=== PATIENT | male | born 1955 | race American Indian/Alaskan Native ===

== ENCOUNTER 2017-03-10 09:53 | Emergency (ER) | payer MEDICAID ==
[2017-03-10 10:20] LABS: Eosinophils % (Auto) 5.2 % (0.0-4.3); Hematocrit 45.8 % (35.5-45.6); Hemoglobin 14.7 gm/dl (11.8-15.2); Mean Corpuscular HGB Conc 32 % (32-34); Mean Corpuscular Hemoglobin 28 pg (28-32); Mean Corpuscular Volume 87 fl (84-94); Platelet Count 184 K/mm3 (140-440); Red Blood Count 5.29 M/mm3 (3.65-5.03); Red Cell Distribution Width 13.8 % (13.2-15.2); White Blood Count 6.3 K/mm3 (4.5-11.0)
[2017-03-10 10:39] LABS: Anion Gap 19 mmol/L; Blood Urea Nitrogen 18 mg/dL (9-20); Calcium 9.2 mg/dL (8.4-10.2); Carbon Dioxide 25 mmol/L (22-30); Chloride 96.7 mmol/L (98-107); Glucose 90 mg/dL (75-100); Potassium 4.2 mmol/L (3.6-5.0); Sodium 136 mmol/L (137-145)
[2017-03-10 23:01] VITALS: BP 151/86
[2017-03-10] MEDS ORDERED: TORADOL IM ONE (23:35)
[2017-03-10] MEDS ORDERED: NORCO 5/325 PO ONE (23:35)
--- NOTE | 2017-03-11 00:59 | Emergency Department Report ---
ED Chest Pain HPI - General Chief Complaint: Chest Pain Stated Complaint: CHEEST PAIN/LT ARM PAIN Time Seen by Provider: 03/10/17 22:15 Source: patient Mode of arrival: Ambulatory Limitations: No Limitations - History of Present Illness Initial Comments: 61-year-old male with a past medical history diabetes, hypertension, and elevated cholesterol. The left sided chest pain times the past 2-3 days. Pain is at the left upper portion a chest radiated to the shoulder, aching, constant , rated 7/10 in intensity. Pain is worse with movement. Patient not taking any medication for pain. He states he did recently crank a car up using a lift prior to symptom onset. Patient denies associated symptoms including shortness of breath, nausea, vomiting, or diaphoresis. Reports he had a negative stress test this year positive for 5 months ago at [facility]. No repor no reports of calf tenderness or edema. Severity scale (0 -10): 5 - Related Data Home Medications Medication Instructions Recorded Confirmed Last Taken Aspirin EC [Aspirin Enteric Coated 81 mg PO DAILY 05/29/15 05/29/15 05/28/15 TAB] Lisinopril [Zestril TAB] 5 mg PO DAILY 05/29/15 05/29/15 05/28/15 Simvastatin [Zocor TAB] 20 mg PO QHS 05/29/15 05/29/15 05/28/15 cycloSPORINE [Restasis 0.05%] 1 drop OP BID 05/29/15 05/29/15 05/29/15 Previous Rx's Medication Instructions Recorded Last Taken Type Bacitracin Zinc Oint 1 applicatio TP BID #1 tube 05/29/15 Unknown Rx HYDROcodone/APAP 5-325 [[place] 1 each PO Q6HR PRN #20 tablet 03/11/17 Unknown Rx 5/325] Ibuprofen [Motrin] 800 mg PO Q8HR PRN #30 tablet 03/11/17 Unknown Rx Allergies Allergy/AdvReac Type Severity Reaction Status Date / Time No Known Allergies Allergy Verified 03/10/17 10:04 Heart Score - HEART Score History: Slightly suspicious EKG: Non-specific Age: 45-65 Risk factors: > 3 risk factors or hx of atherosclerotic disease Troponin: < normal limit HEART Score: 4 ED Review of Systems ROS: Stated complaint: CHEEST PAIN/LT ARM PAIN Other details as noted in HPI Comment: All other systems reviewed and negative Other: Constitutional: No fevers chills or weight loss Eyes: No eye pain visual changes or discharge ENT: No ear pain or throat pain Neck: Denies pain Respiratory: Denies cough wheezing shortness of breath Cardiovascular: As per HPI GI: Denies abdominal pain, nausea, vomiting, diarrhea : Denies dysuria, urinary frequency, or urgency Musculoskeletal: Denies back pain, joint swelling Skin: Denies rash, lesions, erythema Neurologic: Denies headache, numbness, weakness Psychiatric: Denies suicidal ideation, hallucinations ED Past Medical Hx - Past Medical History Previous Medical History?: Yes Hx Hypertension: Yes Hx Diabetes: Yes (diet controlled) Additional medical history: High Cholesterol. cataracts - Surgical History Past Surgical History?: Yes Additional Surgical History: cataract bilateral. Right radial/ulnar fx repair - Social History Smoking Status: Never Smoker Substance Use Type: None - Medications Home Medications: Home Medications Medication Instructions Recorded Confirmed Last Taken Type Aspirin EC [Aspirin Enteric Coated 81 mg PO DAILY 05/29/15 05/29/15 05/28/15 History TAB] Bacitracin Zinc Oint 1 applicatio TP BID #1 tube 05/29/15 Unknown Rx Lisinopril [Zestril TAB] 5 mg PO DAILY 05/29/15 05/29/15 05/28/15 History Simvastatin [Zocor TAB] 20 mg PO QHS 05/29/15 05/29/15 05/28/15 History cycloSPORINE [Restasis 0.05%] 1 drop OP BID 05/29/15 05/29/15 05/29/15 History HYDROcodone/APAP 5-325 [[place] 1 each PO Q6HR PRN #20 tablet 03/11/17 Unknown Rx 5/325] Ibuprofen [Motrin] 800 mg PO Q8HR PRN #30 tablet 03/11/17 Unknown Rx ED Physical Exam - General Limitations: No Limitations - Other Other exam information: General: No limitations, patient is alert in no acute distress Head exam: Atraumatic, normocephalic Eyes exam: Normal appearance ENT: Moist mucous membrane, normal oropharynx Neck exam: Normal inspection, full range of motion, Respiratory exam: Clear to auscultation bilateral, no wheezes, rales, crackles Cardiovascular: Normal rate and rhythm, normal heart sounds. Reproducible upper left chest pain with movement of left shoulder Abdomen: Soft, nondistended, and nontender, with normal bowel sounds, no rebound, or guarding Extremity: Full range of motion normal inspection no deformity, no calf tenderness or edema Back: Normal Inspection, full range of motion, no tenderness Neurologic: Alert, oriented x3, cranial nerves intact, no motor or sensory deficit Psychiatric: normal affect, normal mood Skin: Warm, dry, intact ED Course Vital Signs 03/10/17 03/10/17 03/10/17 10:04 19:55 22:59 Temperature 98.1 F Pulse Rate 80 72 68 Respiratory 20 20 16 Rate Blood Pressure 136/83 Blood Pressure 144/91 151/86 [Right] O2 Sat by Pulse 100 98 97 Oximetry - Reevaluation(s) Reevaluation #1: 03/11/17 00:59 Patient treated with [place] and Toradol in the ED BRISEYDA score - Briseyda Score Age > 65: (0) No Aspirin use within the Past 7 Days: (1) Yes 3 or more CAD Risk Factors: (1) Yes 2 or more Angina events in past 24 hrs: (0) No Known CAD with more than 50% Stenosis: (0) No Elevated Cardiac Markers: (0) No ST Deviation Greater than 0.5mm: (0) No BRISEYDA Score: 2 ED Medical Decision Making - Lab Data Result diagrams: 03/10/17 10:09 03/10/17 10:09 Lab Results 03/10/17 03/10/17 03/10/17 Range/Units 10:09 10:09 14:38 WBC 6.3 (4.5-11.0) K/mm3 RBC 5.29 H (3.65-5.03) M/mm3 Hgb 14.7 (11.8-15.2) gm/dl Hct 45.8 H (35.5-45.6) % MCV 87 (84-94) fl MCH 28 (28-32) pg MCHC 32 (32-34) % RDW 13.8 (13.2-15.2) % Plt Count 184 (140-440) K/mm3 Lymph % (Auto) 38.8 H (13.4-35.0) % [place] % (Auto) 9.4 H (0.0-7.3) % Eos % (Auto) 5.2 H (0.0-4.3) % Baso % (Auto) 1.0 (0.0-1.8) % Lymph # 2.5 (1.2-5.4) K/mm3 [place] # 0.6 (0.0-0.8) K/mm3 Eos # 0.3 (0.0-0.4) K/mm3 Baso # 0.1 (0.0-0.1) K/mm3 Seg Neutrophils % 45.6 (40.0-70.0) % Seg Neutrophils # 2.9 (1.8-7.7) K/mm3 Sodium 136 L (137-145) mmol/L Potassium 4.2 (3.6-5.0) mmol/L Chloride 96.7 L (98-107) mmol/L Carbon Dioxide 25 (22-30) mmol/L Anion Gap 19 mmol/L BUN 18 (9-20) mg/dL Creatinine 1.2 (0.8-1.5) mg/dL Estimated GFR > 60 ml/min BUN/Creatinine Ratio 15.00 % Glucose 90 (75-100) mg/dL Calcium 9.2 (8.4-10.2) mg/dL Troponin T < 0.010 < 0.010 (0.00-0.029) ng/mL - EKG Data -: EKG Interpreted by Me (nsr adrian 72, RV delay, nonspecific t abnl) - EKG Data 03/11/17 repeat ekg in ed was unchanged - Radiology Data Radiology results: image reviewed (cxr: naf) - Medical Decision Making Patient has 2 separate negative sets of cardiac enzymes an EKG without STEMI 2 or T wave inversion. Pain is atypical and seems to be musculoskeletal since constant and reproducible with movement. Patient denies associated symptoms. Patient reports a negative stress test this year. Patient will be treated for musculoskeletal pain and discharged home with pain medication. Positive improvement with meds received in the ED. - Differential Diagnosis mi, msk pain, unstable angina, atypical cp Critical Care Time: No Critical care attestation.: If time is entered above; I have spent that time in minutes in the direct care of this critically ill patient, excluding procedure time. ED Disposition Clinical Impression: Musculoskeletal chest pain, Sprain of shoulder, left Disposition: TO HOME OR SELFCARE Is pt being admited?: No Does the pt Need Aspirin: No Condition: Stable Instructions: Shoulder Sprain (ED), Thoracic Pain (ED) Additional Instructions: Take the medication as prescribed. Return if symptoms worsen. Follow-up with his doctor within 3-5 days. Prescriptions: HYDROcodone/APAP 5-325 [[place] 5/325] 1 each PO Q6HR PRN #20 tablet PRN Reason: Pain Ibuprofen [Motrin] 800 mg PO Q8HR PRN #30 tablet PRN Reason: Overdose Referrals: your, doctor [Other] - 3-5 Days Time of Disposition: 01:08
--- NOTE | 2017-03-11 09:48 | XRay Report ---
ROUTINE CHEST, TWO VIEWS: HISTORY: Right chest pain. The trachea, heart, mediastinal contour, lung mckeon and bony thorax are unremarkable. IMPRESSION: Unremarkable chest x-ray. No significant change since 10/01/15.
== END 2017-03-11 01:19 | disposition home or self-care (01) ==
LOC: ED 09:53
DX: S43.402A Unspecified sprain of left shoulder joint, initial encounter (principal); R07.89 Other chest pain; I10 Essential (primary) hypertension; E11.9 Type 2 diabetes mellitus without complications; E78.00 Pure hypercholesterolemia, unspecified; Z79.82 Long term (current) use of aspirin; X58.XXXA Exposure to other specified factors, initial encounter; Y93.89 Activity, other specified; Y99.9 Unspecified external cause status; Y92.89 Other specified places as the place of occurrence of the external cause
CPT/HCPCS: 36415; 71020; 80048; 84484; 85025; 93005; 93010; 96372; 99285; J1885

== ENCOUNTER 2017-09-25 15:24 | Outpatient (CLI) | payer MEDICAID ==
--- NOTE | 2017-09-26 07:40 | Magnetic Resonance Report ---
MRI UPPER EXTREMITY JOINT LEFT WITHOUT CONTRAST HISTORY: Acute pain of left shoulder. TECHNIQUE: Multisequence, multiplanar MR without IV gadolinium was performed through the left shoulder. Fat suppression technique was utilized. COMPARISON: None. FINDINGS: The distal supraspinatus tendon is severely abnormal demonstrating diffuse thickening and increased signal. The supraspinatus remains attached the proximal humerus although at least one full thickness tear is identified distally measuring approximately 5-7 mm in diameter. Multiple full-thickness defects could be present. There appears to be involvement of the anterior fibers of the infraspinatus tendon as well which probably represents tendinosis. A focal 3 mm full-thickness tear is suspected in the distal, anterior infraspinatus fibers. The teres minor and subscapularis tendons are intact. The biceps tendon and its anchor upon the superior labrum are within normal limits. No gross labral defect. There are [id number] osteoarthritic changes at the acromioclavicular joint and glenohumeral joint. A prominent acromial spur is suspected. Impingement syndrome should be considered. The bone marrow signal is within normal limits. No fracture, dislocation, ligamentous injury or bone lesion is suspected. Small joint effusion and small bursal fluid in the subdeltoid/subacromial bursa are noted. IMPRESSION: Severely abnormal supraspinatus tendon. Full thickness supraspinatus tear as described. Probable small full-thickness defect in the anterior fibers of the infraspinatus tendon. Osteoarthritis. Acromial spur. Correlate for impingement syndrome. Small joint effusion and bursal fluid.
== END 2017-09-25 15:25 | disposition home or self-care (01) ==
LOC: MRI 15:24
DX: M75.102 Unspecified rotator cuff tear or rupture of left shoulder, not specified as traumatic (principal); M19.012 Primary osteoarthritis, left shoulder; M25.812 Other specified joint disorders, left shoulder; I10 Essential (primary) hypertension